=== PATIENT | female | born 2000 | race Two or more races ===

== ENCOUNTER 2024-11-25 17:10 | Emergency (ER) | payer MEDICAID, SELFPAY ==
[2024-11-25 18:39] VITALS: BP 121/81; PULSE 83; RESP 18; TEMP 36.8; O2SAT 96
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
== END 2024-11-25 21:24 | disposition home or self-care (01) ==
PROVIDERS: Emergency Provider Emergency Medicine; PCP Obstetrics & Gynecology
DX: S16.1XXA Strain of muscle, fascia and tendon at neck level, initial encounter (principal); V49.40XA Driver injured in collision with unspecified motor vehicles in traffic accident, initial encounter
CPT/HCPCS: 72040; 99283

== ENCOUNTER → 2025-05-22 | Outpatient (CLI) | payer MEDICAID, SELFPAY ==
--- NOTE | 2025-05-22 14:00 | XR_ITS ---
Examination: Abdomen sonogram, complete Date and time of exam: May 22, 2025 1414 hours INDICATIONS: Pelvic abdominal pain and nausea beginning 3 years ago. Technique: Multiple real-time grayscale transabdominal sonographic images of the abdomen have been obtained. Findings: Absent gallbladder Common bile duct 0.7 cm no stones Pancreatic head 2.0 cm Aorta not enlarged Liver 17 cm no focal liver lesions Normal hepatopedal portal venous flow Patent IVC Right kidney 9.3 cm cortex 1.5 cm Left kidney 10.6 cm cortex 1.4 cm Moderate renal scar formation Spleen 8.6 cm IMPRESSION: Common bile duct 0.7 cm no definite stones, if biliary colic is a clinical consideration, suggest MRCP follow-up
--- NOTE | 2025-05-22 14:00 | XR_ITS ---
Examination: Pelvic ultrasound, transabdominal, complete Technique: Transabdominal ultrasound of the pelvis performed using grayscale imaging Date and time of exam: May 22, 2025 1503 hours INDICATIONS: Pelvic pain and nausea beginning 3 years ago FINDINGS: Uterus 7.3 cm no uterine mass or intrauterine gestation Endometrial stripe 0.6 cm Right ovary 2.9 cm arterial flow 16mm 12 mm cyst Left ovary 4.0 cm arterial flow IMPRESSION: Negative study
== END | disposition home or self-care (01) ==
LOC: CDIM 13:43
PROVIDERS: Referring Provider Student in an Organized Health Care Education/Training Program; Visit Provider Student in an Organized Health Care Education/Training Program
DX: R10.9 Unspecified abdominal pain (principal); N85.8 Other specified noninflammatory disorders of uterus
CPT/HCPCS: 76700; 76856